=== PATIENT | male | born 1975 | race Hispanic/Latino ===

== ENCOUNTER 2022-09-22 18:28 | Emergency (ER) | payer SELFPAY ==
[~2022-09-22] VITALS: Ht 175.3 cm; Wt 77.1 kg
[2022-09-22 18:53] LABS: BASOPHILS % 0.7 % (0.0-1.0); EOSINOPHILS # (AUTO) 0.1 (0.0-0.4); EOSINOPHILS % 1.7 % (0.0-6.0); HEMATOCRIT 38.6 % (38.2-49.6); HEMOGLOBIN 12.5 g/dL (14.0-18.0); LYMPHOCYTES # (AUTO) 0.9 (1.0-3.2); LYMPHOCYTES % 15.1 % (18.0-39.1); MEAN CORPUSCULAR HEMOGLOBIN 27.1 pg (28-32); MEAN CORPUSCULAR HGB CONC 32.4 g/dL (31-35); MEAN CORPUSCULAR VOLUME 83.5 fL (81-99); MONOCYTES # (AUTO) 0.5 (0.2-0.8); MONOCYTES % 8.5 % (4.4-11.3); NEUTROPHILS # (AUTO) 4.3 (2.1-6.9); NEUTROPHILS % 73.8 % (38.7-80.0); PLATELET COUNT 168 x10e3/uL (140-360); RED BLOOD COUNT 4.62 x10e6/uL (4.3-5.7); RED CELL DISTRIBUTION WIDTH 15.9 % (11.7-14.4)
[2022-09-22 19:09] LABS: ALBUMIN 3.1 g/dL (3.5-5.0); ALBUMIN/GLOBULIN RATIO 0.6 (0.8-2.0); ANION GAP 26.8 mmol/L (8-16); CALCIUM 9.3 mg/dL (8.4-10.2); CREATININE, SERUM 10.31 mg/dL (0.72-1.25); POTASSIUM 4.8 mmol/L (3.5-5.1)
[2022-09-22] MEDS ORDERED: ACETAMINOPHEN 325 MG TAB PO ONE (22:45)
[2022-09-23] MEDS ORDERED: TRAMADOL HCL 50 MG TAB PO ONE (00:30)
[2022-09-23] MEDS ORDERED: LABETALOL HCL 5 MG/ML 20ML VIAL IV STA (00:57)
[2022-09-23 04:00] VITALS: O2SAT 98
== END 2022-09-23 05:10 | disposition other institution (70) ==
LOC: ER 18:32
DX: G93.41 Metabolic encephalopathy (principal); I12.0 Hypertensive chronic kidney disease with stage 5 chronic kidney disease or end stage renal disease; E13.22 Other specified diabetes mellitus with diabetic chronic kidney disease; E13.65 Other specified diabetes mellitus with hyperglycemia; N18.6 End stage renal disease; Z99.2 Dependence on renal dialysis; Z76.5 Malingerer [conscious simulation]; Z20.822 Contact with and (suspected) exposure to COVID-19
CPT/HCPCS: 36415; 71046; 80053; 85025; 93971; 99284; J3490; U0002